=== PATIENT | female | born 1955 | race Caucasian/White ===

== ENCOUNTER 2018-04-06 07:21 | Outpatient (CLI) | payer OTHER, SELFPAY ==
--- NOTE | 2018-04-06 09:10 | DI.MAMMO_ITS ---
SYMPTOM/DIAGNOSIS: SCREENING, Z12.31 MAMMOGRAM: Mammograms were interpreted according to the usual protocol including computer analysis with CAD system, tomosynthesis and C view imaging. This is a baseline examination. Breast density category B. No suspicious masses or microcalcifications are seen. The skin and axilla are unremarkable. IMPRESSION: No evidence for malignancy. Yearly mammography is recommended. Category 1-B. MQSA ASSESSMENT OF FINDINGS: Negative. Category 1. Patient will receive a letter notifying them of these results. BI-RADS category B. There are scattered areas of fibroglandular density.
== END 2018-04-06 07:41 ==
PROVIDERS: PCP Family Medicine; Visit Provider Family Medicine
DX: Z12.31 Encounter for screening mammogram for malignant neoplasm of breast (principal)
CPT/HCPCS: 77063; 77067

== ENCOUNTER 2018-04-23 09:28 | Outpatient (REF) | payer OTHER, SELFPAY ==
--- NOTE | 2018-04-23 09:00 | PAPFT_PTH ---
PATIENT: Kary Delvalle LOC: [facility] U#:[id number] AGE/SX: 62/F ROOM: RE04/23/[address]: Antoinette Meyer : 1955 BED: DIS: 04/23/2018 SPEC #: [id number] RECD: 04/23/18 13:12 STATUS: TOÑITO REMaxim #: [id number] ROZ: 04/23/18 09:[address]: Antoinette Meyer DEPT: [facility] Cytology RECD BY: Brandi Church Tissues: 1 - CX/ENDOCX FOR PAP SMEARS Procedures: PAP THIN PREP/UVM Screening HPV DNA PROBE Comments: [id number]
[2018-04-23 12:09] LABS: HGB 14.7 g/dL (12.0-15.5); Mean Corp. HGB Concentration 33.4 g/dL (32.0-36.0); Mean Corpuscular Hemoglobin 30.1 pg (27.0-33.0); Mean Platelet Volume 11.1 fL (8.0-11.0); Platelet Count 186 x1000/uL (130-400); RBC 4.89 m/cumm (4.00-5.20); RBC Distribution Width 13.3 % (11.7-14.6); White Blood Cell Count 3.88 k/cumm (4.4-10.8)
[2018-04-23 14:43] LABS: ALT 34 U/L (12-78); AST 41 U/L (15-37); Albumin 4.4 g/dL (3.4-5.0); Alkaline Phosphatase 66 U/L (46-116); Anion Gap 10.7 mmol/L (3-11); BUN 14 mg/dL (7-18); Bilirubin, Total 0.7 mg/dL (0.2-1.0); CO2 27.3 mmol/L (21.0-32.0); Calcium 9.2 mg/dL (8.5-10.1); Chloride 101 mmol/L (98-107); Cholesterol 250 mg/dL (50-200); Glucose 76 mg/dL (70-100); HDL Cholesterol 120 mg/dL (40-60); LDL CHOLESTEROL 126 mg/dL (<100); Potassium 4.2 mmol/L (3.5-5.1); Sodium 139 mmol/L (136-145); Total Protein 7.5 g/dL (6.4-8.2)
[2018-04-23 15:10] LABS: Triglyceride < 25 mg/dL (30-150)
== END 2018-04-23 09:48 ==
LOC: NCHCN 09:28
PROVIDERS: PCP Family Medicine; Visit Provider Family Medicine
DX: R79.89 Other specified abnormal findings of blood chemistry (principal); E78.5 Hyperlipidemia, unspecified; Z12.4 Encounter for screening for malignant neoplasm of cervix; Z00.00 Encounter for general adult medical examination without abnormal findings; Z11.51 Encounter for screening for human papillomavirus (HPV); Z01.419 Encounter for gynecological examination (general) (routine) without abnormal findings
CPT/HCPCS: 80053; 80061; 83721; 85027; 88142; 87624

== ENCOUNTER 2020-12-12 13:48 | Outpatient (REF) | payer MEDICARE, OTHER, SELFPAY ==
[2020-12-12 14:19] LABS: ALT 24 U/L (14-59); AST 28 U/L (15-37); Albumin 4.2 g/dL (3.4-5.0); Alkaline Phosphatase 67 U/L (46-116); BUN 15 mg/dL (7-18); Bilirubin, Total 0.4 mg/dL (0.2-1.0); CREATININE 0.9 mg/dL (0.55-1.02); Calcium 9.3 mg/dL (8.5-10.1); Calculated LDL 123 mg/dL (<100); Chloride 103 mmol/L (98-107); Cholesterol 224 mg/dL (<200); Glucose 91 mg/dL (74-106); HDL Cholesterol 89 mg/dL (40-60); Potassium 4.4 mmol/L (3.5-5.1); Sodium 141 mmol/L (136-145); Total Protein 7.1 g/dL (6.4-8.2); Triglyceride 60 mg/dL (<150)
== END 2020-12-12 13:49 | disposition home or self-care (01) ==
LOC: NCHCN 13:48
PROVIDERS: PCP Family Medicine; Visit Provider Family Medicine
DX: E78.5 Hyperlipidemia, unspecified (principal); R79.89 Other specified abnormal findings of blood chemistry
CPT/HCPCS: 80053; 80061

== ENCOUNTER 2021-01-09 02:48 | Outpatient (CLI) | payer MEDICARE, OTHER, SELFPAY ==
--- NOTE | 2021-01-09 08:00 | DI.MAMMO_ITS ---
Exam(s) MAMMO SCREENING EXAM: MAMMO SCREENING CLINICAL HISTORY: SCREENING, Z12.31 TECHNIQUE: Mammograms were interpreted according to the usual protocol including computer analysis w [employer] CAD system, tomosynthesis and C-view imaging. COMPARISON: 2018 FINDINGS: The breasts are composed of scattered fibroglandular densities, Breast Density category B. No suspicious masses or suspicious microcalcifications are seen. No skin thickening or abnormal axillary lymph nodes are seen. There has been no significant change from prior exams. IMPRESSION: BI-RADS Category 1, Negative mammogram Yearly screening mammography is recommended. Breast Density - Category B, scattered fibroglandular densities. A negative radiographic report should not delay biopsy if a dominant or clinically suspicious mass is present. Up to ten percent of cancers are not identified on mammography. A negative report may reinforce clinical impression. Adenosis and dense breasts may obscure an underlying neoplasm. False positive reports average 6 to 10%. Patient will receive a letter notifying them of these results.
== END 2021-01-09 03:08 ==
PROVIDERS: PCP Family Medicine; Visit Provider Family Medicine
DX: Z12.31 Encounter for screening mammogram for malignant neoplasm of breast (principal)
CPT/HCPCS: 77063; 77067

== ENCOUNTER 2022-05-28 13:38 | Outpatient (REF) | payer MEDICARE, SELFPAY ==
[2022-05-28 14:36] LABS: Abs Immature Grans 0.01 10^3/uL (0.0-0.06); Absolute Basophil Count 0.07 10^3/uL (0.0-0.2); Absolute Eosinophil Count 0.07 10^3/uL (0.0-0.7); Absolute Lymphocyte Count 1.42 10^3/uL (1.2-3.4); Absolute Monocyte Count 0.43 10^3/uL (0.1-0.8); Absolute Neutrophil Count 3.34 10^3/uL (1.2-6.7); Basophils % 1.3; Eosinophils % 1.3; HCT 39.9 % (36.0-46.0); HGB 13.1 g/dL (11.2-15.7); Immature Grans % 0.2; Lymphocytes % 26.6; MCHC 32.8 % (32.0-36.0); MCV 88 fL (80-95); MPV 11.4 fL (8.0-11.0); Monocytes % 8.1; Neutrophils % 62.5; Platelet Count 255 10^3/uL (130-400); RBC 4.52 10^6/uL (3.93-5.22); RDW 13.8 % (11.7-14.6); RDW-SD 44.7 fL; WBC 5.34 10^3/uL (4.4-10.8)
[2022-05-28 14:53] LABS: ALT 27 U/L (14-59); AST 30 U/L (15-37); Albumin 4.4 g/dL (3.4-5.0); Alkaline Phosphatase 75 U/L (46-116); BUN 11 mg/dL (7-18); Bilirubin, Total 0.4 mg/dL (0.2-1.0); CREATININE 0.9 mg/dL (0.55-1.02); Calcium 9.8 mg/dL (8.5-10.1); Chloride 103 mmol/L (98-107); Estimated GFR 70.07 (mL/min/1.73m2); Glucose 99 mg/dL (74-106); Lipase 138 U/L (73-393); Potassium 4.9 mmol/L (3.5-5.1); Sodium 140 mmol/L (136-145); Total Protein 7.5 g/dL (6.4-8.2)
== END 2022-05-28 13:39 | disposition home or self-care (01) ==
LOC: NCHCN 13:38
PROVIDERS: PCP Family Medicine; Visit Provider Family Medicine
DX: R10.9 Unspecified abdominal pain (principal)
CPT/HCPCS: 80053; 83690; 85025

== ENCOUNTER 2023-02-21 00:52 | Outpatient (CLI) | payer MEDICARE, SELFPAY ==
--- NOTE | 2023-02-21 07:50 | DI.MAMMO_ITS ---
Exam(s) MAMMO SCREENING EXAM: MAMMO SCREENING CLINICAL HISTORY: SCREENING, Z12.31, [facility], Z00.00. TECHNIQUE: Bilateral full field digital CC and MLO mammographic images were obtained with 3D tomosyn thesis and utilizing computer aided detection (CAD). COMPARISON: Prior mammograms were reviewed. FINDINGS: There has been no significant change in the appearance and distribution of the fibroglandular tissue. There are no new spiculated masses nor malignant appearing microcalcification groups. There is no significant architectural distortion nor skin thickening-retraction. IMPRESSION: No radiographic evidence of malignancy. BI-RADS Category 1 - Negative Breast Density - Category B - Scattered areas of fibroglandular density Breast density Category C or D implies that the patient has dense breast tissue. Dense breast tissue can make it harder to find cancer on a mammogram. Dense breast tissue is also associated with an incr eased risk of breast cancer. This information about the result of the mammogram report was provided to the patient to raise their awareness. Use this report when you speak with the patient about their risks for breast cancer, which includes their family history. At that time, you may recommend additional screening tests (Ultrasoun d or MRI) as these tests may add significant information. A negative radiographic report should not delay biopsy if a dominant or clinically suspicious mass is present. Up to ten percent of cancers are not identified on mammography. A negative report may reinforce clinical impression. Adenosis and dense breasts may obscure an underlying neoplasm. False positive reports average 6 to 10%. Patient will receive a letter notifying them of these results.
== END 2023-02-21 01:12 ==
LOC: DI 00:52
PROVIDERS: PCP Family Medicine; Visit Provider Family Medicine
DX: Z12.31 Encounter for screening mammogram for malignant neoplasm of breast (principal)
CPT/HCPCS: 77063; 77067

== ENCOUNTER 2024-02-13 15:56 | Outpatient (REF) | payer MEDICARE, SELFPAY ==
[2024-02-13 16:30] LABS: ALT 24 U/L (14-59); AST 34 U/L (15-37); Alkaline Phosphatase 77 U/L (46-116); Anion Gap 8.8 mmol/L (3-11); BUN 11 mg/dL (7-18); Bilirubin, Total 0.47 mg/dL (0.2-1.0); CO2 28.2 mmol/L (21.0-32.0); CREATININE 0.9 mg/dL (0.55-1.02); Calcium 9.3 mg/dL (8.5-10.1); Calculated LDL 112 mg/dL (<100); Chloride 106 mmol/L (98-107); Cholesterol 241 mg/dL (<200); Estimated GFR 69.64 (mL/min/1.73m2); Glucose 88 mg/dL (74-106); HDL Cholesterol 121 mg/dL (40-60); Potassium 4.3 mmol/L (3.5-5.1); Sodium 143 mmol/L (136-145); Total Protein 7.1 g/dL (6.4-8.2); Triglyceride 40 mg/dL (<150); Vitamin D 25 Total 54.8 ng/mL (30-100)
== END 2024-02-13 15:57 | disposition home or self-care (01) ==
LOC: NCHCN 15:56
PROVIDERS: PCP Family Medicine; Visit Provider Family Medicine
DX: E78.5 Hyperlipidemia, unspecified (principal); Z00.00 Encounter for general adult medical examination without abnormal findings
CPT/HCPCS: 80053; 80061; 82306

== ENCOUNTER 2024-12-08 01:45 | Outpatient (CLI) | payer MEDICARE, SELFPAY ==
--- NOTE | 2024-12-08 | DI.DEXA_ITS ---
Exam(s) XR DEXA BONE DENSITY W/WO KASIA EXAM: XR DEXA BONE DENSITY W/WO KASIA CLINICAL HISTORY: POSTMENOPAUSAL, Z78.0 TECHNIQUE: COMPARISON: Comparison is made with a report dated 03/09/2009 from [facility]. FINDINGS: Lateral Spine Image: Unremarkable. No compression deformities identified. Left hip: Total T-Score: -1.2. This compares to 0.5 on the prior examination. Total Z-Score: 0.3 T- and Z-scores: The findings are consistent with osteopenia. Lumbar Spine: Total T-Score: -1.1. This compares to 0.2 on the prior examination. Total Z-Score: 0.9 T- and Z-scores: Findings are consistent with osteopenia. IMPRESSION: No evidence of osteoporosis.
--- NOTE | 2024-12-08 | DI.MAMMO_ITS ---
Exam(s) MAMMO SCREENING EXAM: MAMMO SCREENING CLINICAL HISTORY: SCREENING, Z12.31 TECHNIQUE: Bilateral full field digital CC and MLO mammographic images were obtained with 3D tomosynthesis and utilizing computer aided detection (CAD). COMPARISON: Comparison is made with prior examinations. FINDINGS: Masses/Architectural Distortion: No suspicious masses or areas of architectural distortion are present. Microcalcifications: No suspicious pleomorphic-type are seen. Skin Thickening/Nipple Retraction: None. IMPRESSION: 1. No significant interval change with no specific features of malignancy noted. 2. Unless there is more urgent need, screening mammography is recommended, as per [employer] guidelines. BI-RADS Category 1 - Negative Breast Density - Category B - There are scattered areas of fibroglandular density. Breast density Category C or D implies that the patient has dense breast tissue. Dense breast tissue can make it harder to find cancer on a mammogram. Dense breast tissue is also associated with an increased risk of breast cancer. This information about the result of the mammogram report was provided to the patient to raise their awareness. Use this report when you speak with the patient about their risks for breast cancer, which includes their family history. At that time, you may recommend additional screening tests (Ultrasound or MRI) as these tests may add significant information. A negative radiographic report should not delay biopsy if a dominant or clinically suspicious mass is present. Up to ten percent of cancers are not identified on mammography. A negative report may reinforce clinical impression. Adenosis and dense breasts may obscure an underlying neoplasm. False positive reports average 6 to 10%. Patient will receive a letter notifying them of these results.
== END 2024-12-08 02:05 ==
PROVIDERS: PCP Family Medicine; Visit Provider Family Medicine
DX: Z12.31 Encounter for screening mammogram for malignant neoplasm of breast (principal); Z78.0 Asymptomatic menopausal state; Z13.820 Encounter for screening for osteoporosis
CPT/HCPCS: 77063; 77067; 77080

== ENCOUNTER → 2025-02-10 11:02 | Outpatient (BNVA) | payer MEDICARE, OTHER, SELFPAY | PROVIDERS: PCP Family Medicine; Referring Provider Family Medicine; Visit Provider Physical Therapy Assistant | DX: Z12.11 Encounter for screening for malignant neoplasm of colon (principal) | CPT/HCPCS: S0285 ==

== ENCOUNTER 2025-02-24 09:41 | Day surgery (SDC) | payer MEDICARE, OTHER, SELFPAY ==
[2025-02-24 10:00] VITALS: BP 133/101; PULSE 76; RESP 14; TEMP 36.4; O2SAT 100
[2025-02-24] MEDS: Lactated Ringers 1,000 ML 80 ML IV (10:25)
--- NOTE | 2025-02-24 10:53 | W.ANESPRE ---
General Info Date of Service Date Performed: 02/24/25 Height: 5 ft 5.5 in Weight: 51.9 kg Body Mass Index (BMI): 18.7 Surgical Procedure: Operation Date: 02/24/25 11:20 Proposed Procedure Side Surgeon p Colonoscopy Shey Murphy MD Actual Procedure Side Surgeon p Colonoscopy Not Applicable Shey Murphy MD Meds Allergies and Home Medications Allergies Allergy/AdvReac Type Severity Reaction Status Date / Time No Known Allergies Allergy Verified 02/24/25 09:54 Home Medication ?Medication ?Instructions ?Recorded docosahexaenoic acid (dha)-epa 120 1 cap PO DAILY 02/03/25 mg-180 mg capsule (Fish Oil) ginseng 100 mg capsule 200 mg PO DAILY 02/03/25 multivitamin 1 tab PO DAILY 02/03/25 bisacodyl 5 mg tablet,delayed 5 mg PO ONCE #4 tabs 02/10/25 release (Dulcolax (bisacodyl)) polyethylene glycol 3350 17 17 g PO ONCE #238 grams 02/10/25 gram/dose oral powder Probiotic 02/24/25 acetaminophen 650 mg 650 mg PO Q8H PRN 02/24/25 tablet,extended release (Arthritis Pain Relief (acetaminophen) ER) aspirin 81 mg capsule 81 mg PO DAILY 02/24/25 calcium 200 mg (as tab PO 02/24/25 citrate)-vitamin D3 3.125 mcg (125 unit) tablet calcium carbonate (Tums) 650 mg PO DAILY 02/24/25 diphenhydramine HCl 25 mg capsule 50 mg PO QHS PRN 02/24/25 (Benadryl) Current Visit Medications: Current Medications Generic Name Dose Route Start Last Admin Trade Name Freq PRN Reason Stop Dose Admin Ringer's Solution 1,000 mls @ 80 mls/hr 02/24/25 06:00 02/24/25 10:25 IV 02/24/25 23:59 80 mls/hr INFUSION JORGE A Administration IV Miscellaneous Supplies 1 each 02/24/25 06:00 Iv Access IV 02/24/25 23:59 DIRECTED JORGE A Sodium Biphosphate/Sodium Phosphate 133 ml 02/24/25 06:00 Na Phosphate Enema-Adult 133 Ml Btl TN 02/24/25 23:59 DIRECTED PRN Sodium Chloride 0 ml 02/24/25 06:00 Normal Saline Flush 10 Ml Syr IV 02/24/25 23:59 PRN PRN Sodium Chloride 0 ml 02/24/25 06:00 Normal Saline 10 Ml Vial IJ 02/24/25 23:59 DIRECTED PRN Sterile Water 0 ml 02/24/25 06:00 Water,Injection,Sterile 10 Ml Vial IJ 02/24/25 23:59 DIRECTED PRN PFSH Medical History Medical History Umbilical hernia Migraine Hyperlipidemia Medical History Comments:: 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 Surgical History Surgical History Hx of colonoscopy History of back surgery 1982 Tobacco Smoking/Tobacco Use Status: Former Tobacco Use Passive smoking exposure: No Alcohol Alcohol Intake: current Alcohol intake frequency: a few times a week Alcohol type: hard liquor Substance Use Substance use type: does not use Vital Signs and Lab Results Vital Signs Most Recent Vital Signs in EMR: Most Recent Vital Signs Temp Pulse Resp BP Pulse Ox 36.4 C L 76 14 133/101 H 100 02/24/25 10:00 02/24/25 10:00 02/24/25 10:00 02/24/25 10:00 02/24/25 10:00 Anesthesia Assessment and Plan Anesthesia History Personal History: No History of Anesthesia Complications Family History: No Family History of Anesthesia Complications Exercise Tolerance Exercise Tolerance: Metabolic Equivalents>4 Pertinent Negatives Pertinent Negatives: No Symptoms of GERD Cardiac & Pulmonary Exam Cardiac Exam: Normal S1/S2 Heart Sounds Pulmonary Exam: Clear Bilateral Breath Sounds Implantable Cardiac Device Does patient have a Pacemaker or an ICD?: No Airway Exam Known Difficult Airway: No Mallampati Class: 2 Mouth Opening: Normal (> 3cm) Thyromental Distance: Greater than 3 cm Neck Range of Motion: Full ROM Neck Circumference: Normal Teeth Condition: Normal Dentition ASA Classification ASA Score: ASA 2 Emergency Case?: No NPO Status NPO Status: NPO Clears >2 hours, Solids >8 hours Anesthesia Plan Resuscitation Status: Full Code Anesthesia Technique: General Anesthesia Airway Planned: Natural Airway Monitors Used: Standard Monitors
[2025-02-24 10:54] VITALS: BMI 18.7
--- NOTE | 2025-02-24 10:55 | W.PM.DSUDISC ---
Date of service: 02/24/25 Discharge Plan Disposition Patient Disposition: Home Condition: Stable Discharge Details Reason For Visit: screening colonoscopy Attending Provider: Shey Murphy Primary Care Provider: Antoinette Meyer Home Meds and New Rx's Prescriptions: Continued multivitamin Tablet 1 tab PO DAILY ginseng 100 mg capsule 200 mg PO DAILY Fish Oil 120-180 mg capsule 1 cap PO DAILY calcium citrate-vitamin D3 200 mg-3.125 mcg (125 unit) tablet PO Probiotic aspirin 81 mg capsule 81 mg PO DAILY Tums 320 mg calcium (750 mg) tablet,chewable 650 mg PO DAILY acetaminophen [Arthritis Pain Relief (acetam)] 650 mg tablet extended release 650 mg PO Q8H PRN diphenhydramine HCl [Benadryl] 25 mg capsule 50 mg PO QHS PRN Discontinued bisacodyl [Dulcolax (bisacodyl)] 5 mg tablet,delayed release (DR/EC) 5 mg PO ONCE Qty: 4 0RF Rx Instructions: Take per colonoscopy instructions provided by ordering providers office polyethylene glycol 3350 17 gram/dose powder 17 g PO ONCE Qty: 238 0RF Rx Instructions: Take per colonoscopy instructions provided by ordering providers office Discharge Instructions Additional Instructions: Normal colonoscopy. Zero polyps. Next screening colonoscopy will be due in 10 years Stand Alone Forms: Anesthesia Discharge InstLaury, Maribeth Mcgarry (DSU) Activity:: Activity as Tolerated Diet:: As Tolerated Discharge Orders Discharge Orders: Discharge Order (Routine); Ordered 02/24/25 Ordered By: Shey Murphy DS: Diagnosis Discharge Diagnosis (1) Screening for colorectal cancer: Status: Acute
--- NOTE | 2025-02-24 10:58 | W.COLOREPORT ---
Date of service: 02/24/25 Time of Service: 10:58 Colonoscopy Report Pre-op diagnosis general: Screening for colorectal cancer Post-op diagnosis procedure note: same Procedure: Colonoscopy Surgeon: Shey Murphy Anesthesia Type: General:No Airway Estimated blood loss (mL): 0 Pathology: none sent Complications: None Indications: screening for colorectal cancer Prep: Miralax/Dulcolax (Good) Procedure Description: Informed consent was obtained and the patient was taken to the procedure area. The patient was placed in left lateral decubitus position on the procedure table. Timeout was performed. Anesthesia was induced. A lubricated colonoscope was inserted through the anus and passed to the cecum. The cecum was identified by the ileocecal valve and the appendiceal orifice. The scope was then slowly withdrawn and the colonic and rectal mucosa examined. Abdominal counter pressure was required to reach the cecum. TI intubated and examined. It appears normal. There are no colon or rectal mass lesions, polyps, AVMs. There is no inflammatory change. No diverticulosis was seen. The scope was retroflexed in the anorectal junction examined. Uncomplicated internal hemorrhoids present. Assessment and plan: Screening for colorectal cancer Normal colonoscopy. Next screening colonoscopy will be due in 10 years.
[2025-02-24 11:27] VITALS: BP 104/69; PULSE 65; RESP 14; TEMP 36.1; O2SAT 99
--- NOTE | 2025-02-24 11:41 | W.ANESPOSTOP ---
Postoperative Evaluation Date, Time and Location Date Performed: 02/24/25 Time Performed: 11:28 Patient Location: Day Surgery Unit Vital Signs Most Recent Imported Vital Signs: Most Recent Vital Signs Temp Pulse Resp BP Pulse Ox 36.1 C L 65 14 104/69 99 02/24/25 11:27 02/24/25 11:27 02/24/25 11:27 02/24/25 11:27 02/24/25 11:27 Pain Score Most Recent Pain Score: Most Recent Pain Score Pain Level 0 02/24/25 11:27 Assessment Mental Status: Awake (Alert & Oriented to Patient Baseline) Airway and Respiratory Function: Patent airway with normal (patient baseline) respiratory exam Cardiovascular Function: Hemodynamically Stable Hydration Status: Adequately Hydrated Nausea & Vomiting: No Nausea or Vomiting Pain: Pt. Denies Any Pain Peripheral Nerve Block: Patient did not receive a nerve block
[2025-02-24 11:52] VITALS: BP 114/80; PULSE 59; RESP 14; TEMP 36.2; O2SAT 99
== END 2025-02-24 12:08 | disposition home or self-care (01) ==
PROVIDERS: PCP Family Medicine; Visit Provider Surgery
PROC: 0DJD8ZZ Inspection of Lower Intestinal Tract, Via Natural or Artificial Opening Endoscopic (ICD-10-PCS; CPT 45378; principal; 2025-02-24 11:15)
DX: Z12.11 Encounter for screening for malignant neoplasm of colon (principal); Z12.12 Encounter for screening for malignant neoplasm of rectum
CPT/HCPCS: G0121; J2003; J2704